=== PATIENT | male | born 1995 | race Two or more races ===

== ENCOUNTER 2023-08-10 17:34 | Emergency (ER) | payer OTHER, SELFPAY ==
--- NOTE | ~2023-08-10 | XR_ITS ---
EXAMINATION: XR CHEST CLINICAL INFORMATION: Reason for Exam cough COMPARISON: None TECHNIQUE: 2 views of the chest FINDINGS: Lines and tubes: None. Clear lungs. No pleural effusion. No pneumothorax. Ectatic or dilated ascending thoracic aorta greater than expected for age. Normal cardiac silhouette. XR/XR chest 2V IMPRESSION: Ectatic or dilated ascending thoracic aorta greater than expected for age. If clinical concern for aortic pathology, CT angiogram chest could be obtained.
[2023-08-10 17:42] VITALS: BP 127/60; PULSE 106; RESP 20; TEMP 36.4; O2SAT 95; BMI 38.7
--- NOTE | 2023-08-10 17:43 | ED.GENADULT ---
HPI - General Adult General Chief complaint: Upper Respiratory Symptoms Stated complaint: coughing/smoking a lot Time Seen by Provider: 08/10/23 19:23 Source: patient Mode of arrival: ambulatory Limitations: no limitations History of Present Illness ED Provider: Lynne Ricardo PA-C HPI narrative: Patient is a 28 year old assigned male at with a history of asthma presenting to the emergency department today with a cough. Patient states that over the last few days he has had increased coughing and continues to use his inhaler with no relief. Patient denies any dizziness, lightheadedness, abdominal pain, nausea, vomiting, fever, chills, blurry vision, double vision, loss of vision, chest pain, difficulty breathing, shortness of breath, back pain, night sweats, pain with urination, increased urinary frequency, increased urinary urgency, blood in his urine or stool, syncope or a near syncopal episode, recent trauma or falls, bowel incontinence, bladder incontinence, bowel retention, bladder retention, or any other complaints at this time. Onset (ago): day(s) Relieving factors: none Exacerbating factors: none Associated symptoms: cough Treatments prior to arrival: other (inhaler) Related Data Previous Rx's ?Medication ?Instructions ?Recorded benzonatate 100 mg capsule 100 mg PO BID PRN cough 7 days #14 08/10/23 caps doxycycline hyclate 100 mg tablet 100 mg PO BID 7 days #14 tabs 08/10/23 prednisone 20 mg tablet 20 mg PO DAILY 7 days #7 tabs 08/10/23 Allergies Allergy/AdvReac Type Severity Reaction Status Date / Time egg [EGGS] AdvReac Unknown NAUSEA AND Verified 08/10/23 17:45 VOMITING Review of Systems Constitutional: Constitutional: Reports no additional constitutional complaints, Denies chills, Denies fever(s) and Denies night sweats Eyes: Eyes: Reports no additional eye complaints, Denies blurry vision, Denies change in vision, Denies diplopia, Denies eye discharge, Denies loss of vision and Denies eye pain ENT: Denies dizziness Cardiovascular: Cardiovascular: Reports no additional cardiovascular complaints, Denies chest pain, Denies lightheadedness, Denies Loss of Consciousness and Denies dyspnea Respiratory: Respiratory: Reports no additional respiratory complaints, Reports cough and Denies dyspnea Gastrointestinal: Gastrointestinal: Reports no additional gastrointestinal complaints, Denies abdominal pain, Denies melena, Denies hematochezia, Denies change in bowel habits and Denies change in stool character Genitourinary: Genitourinary: Reports no additional male genitourinary complaints, Denies hematuria, Denies oliguria, Denies difficulty urinating, Denies dysuria, Denies urinary frequency, Denies urinary hesitancy, Denies urinary incontinence and Denies urinary urgency Musculoskeletal: Musculoskeletal: Reports no additional musculoskeletal complaints, Denies numbness and Denies tingling Neurologic: Denies dizziness, Denies loss of vision, Denies numbness and Denies tingling Psychiatric: Psychiatric: Reports no additional psychiatric complaints Endocrine: Endocrine: Reports no additional endocrine complaints Hematologic/Lymphatic: Hematologic/Lymphatic: Reports no additional hematologic/lymphatic complaints Allergic/Immunologic: Allergic/Immunologic: Reports no additional allergic/immunologic complaints PMFSH Past Medical History Attestation statement: The following information was validated with the patient. Source: old records reviewed and nursing notes reviewed Social History Social History Advance Directives: No Advance Directives Information Provided: No Do you have a plan to hurt others: No Plan Physical Exam ED Vital Signs: Vital Signs - 24 hr 08/10/23 17:42 08/10/23 19:01 08/10/23 19:13 Temperature 97.5 F Pulse Rate 106 H 119 H 110 H Respiratory Rate 20 24 H 22 H Blood Pressure 127/60 145/84 H Pulse Oximetry 95 95 Oxygen Delivery Method Room Air Room Air 08/10/23 19:42 Temperature 98 F Pulse Rate 110 H Respiratory Rate 22 H Blood Pressure 135/65 Pulse Oximetry 95 Oxygen Delivery Method Room Air BMI result Body Mass Index 38.7 Const General: cooperative, no acute distress, alert and awake Nutritional Appearance: well nourished Orientation/consciousness: patient oriented x3 Limitations: no limitations [facility] Head: Yes normal to inspection and Yes atraumatic Ears: hearing grossly normal bilaterally and external ears normal General nose exam: Normal external nose present, no nasal discharge noted and no epistaxis Face and sinus: Yes normal facial exam, No abrasion and No laceration Mouth: Normal oral and palatal mucosa present, no drooling and no muffled voice Eyes General: appearance normal, both eyes and all related structures Periorbital: periorbital findings normal Eyelids: Yes eyelids normal Conjunctivae: conjunctivae normal Pupils: Equal, round and reactive pupils present EOM: EOMs intact bilaterally Neck Neck: Yes normal visual inspection, Yes full ROM and Yes no lymphadenopathy Chest Chest palpation & inspection: normal inspection of the chest Resp Effort & Inspection: normal respiratory effort and able to speak in complete sentences Auscultation: wheezes throughout GI Inspection: Yes normal to inspection Neuro General: patient oriented x3 and moves all extremities Cranial nerves: Yes Equal, round and reactive pupils present Cognition (Neuro): normal cognition Motor exam (neuro): 5/5 motor strength present throughout Sensory Exam: Normal double simultaneous stimulation for sensation Coordination: [id number] test normal Extrem General: Yes normal to inspection, Yes full ROM and Yes capillary refill normal Psych Appearance: grossly normal Mental Status: mental status grossly normal Affect: normal affect Attitude: cooperative Thought process: Normal thought process present Thought content: Normal thought content present Insight: Good insight present (Psych) Course Course Course Narrative: RME performed by Lynne Ricardo PA-C. Patient is a 28 year old assigned male at presenting to the emergency department with a cough. Patient states he has been coughing for a few days and it is not getting better. Worse with laying down. Detailed physical exam and review of systems are deferred to the manager solution. Imaging and swabs ordered. Patient placed back in the waiting room pending room availability and results. Medications Administered Discontinued Medications Generic Name Dose Route Start Last Admin Trade Name Freq PRN Reason Stop Dose Admin Albuterol Sulfate 2.5 mg/ 0 mg 08/10/23 19:08 08/10/23 19:10 Albuterol/Ipratropium 3 ml INHALE 08/10/23 19:09 2.5 dose ONCE ONE Administration Methylprednisolone Sodium Succinate 60 mg 08/10/23 19:01 08/10/23 19:04 Methylprednisolone Sod Succ 125 Mg/2 Ml Vial IM 08/10/23 19:02 60 mg ONCE ONE Administration Medical Decision Making Medical Decision Making MDM Narrative: Patient is a 28 year old assigned male at with a history of asthma presenting to the emergency department today with a cough. Patient's physical exam showed wheezing throughout but was otherwise unremarkable. Patient's COVID-19, influenza, and RSV tests were negative. Patient's chest x-ray showed no acute process. Patient's chest x-ray did show an incidental finding of an ectatic or dilated ascending aorta greater than expected for age. I explained my physical exam findings as well as all test results to the patient. I answered all questions asked by the patient. Patient received IM solu-medrol and a breathing treatment which he stated helped his symptoms significantly. I stressed the importance of the patient taking his medication as prescribed. 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 I stressed the importance of the patient returning to the emergency department immediately if his symptoms were to worsen or if he were to develop any dizziness, shortness of breath, difficulty breathing, chest pain, blurry vision, loss of vision, nausea, vomiting, abdominal pain, fever, chills, back pain, or any other complaints. Patient verbalized agreement and understanding with this treatment plan and discharge. Differential Diagnosis Differential Diagnoses: The differential diagnosis associated with the presentation includes Cough Asthma exacerbation Admission/Observation Consideration of admission/observation: Escalation of care including admission/observation considered Patient would have been admitted to the hospital had his work up had any findings where hospital admission was appropriate and his clinical presentation warranted hospital admission. Lab Data [facility] Lab Attestation statement: I reviewed the patient's lab results. My interpretation of these results are in the [facility] Rationale portion of this note. Labs: Lab Results 08/10/23 Range/Units 17:52 Influenza Type A (PCR) NEGATIVE (Negative) Influenza Type B (PCR) NEGATIVE (Negative) RSV RNA Qual (PCR) NEGATIVE (Negative) SARS-CoV-2 RNA (RT-PCR) NEGATIVE (Negative) Independent Interpretation I performed an independent interpretation of an: Plain X-Ray Interpretation: My interpretation is in agreement with the radiologist's impression of this imaging study. EXAMINATION: XR CHEST CLINICAL INFORMATION: Reason for Exam cough COMPARISON: None TECHNIQUE: 2 views of the chest FINDINGS: Lines and tubes: None. Clear lungs. No pleural effusion. No pneumothorax. Ectatic or dilated ascending thoracic aorta greater than expected for age. Normal cardiac silhouette. XR/XR chest 2V IMPRESSION: Ectatic or dilated ascending thoracic aorta greater than expected for age. If clinical concern for aortic pathology, CT angiogram chest could be obtained. Dictated By: Bisi Rankin MD Signed By: Electronically signed by Bisi Ranikn MD 08/10/231929 Radiology Impression Discussion of test interpretation with radiology: I have reviewed the radiologist's reading. Prescription Management I considered prescription management with: Antibiotic (patient prescribed an antibiotic for bronchitis) Critical Care Time Critical Care Time Critical Care Time: Yes Total Critical Care Time: 35 Attestation: I spent 35 minutes of Critical Care Time with this patient. This does not include time spent on separately reported billable procedures. Discharge Plan Discharge Clinical Impression: Bronchitis, Asthma exacerbation Patient Disposition: Home, Self-Care Instructions: Asthma (DC), Acute Bronchitis (ED) Additional Instructions: Follow up with your primary care provider. Return to the emergency department immediately if your symptoms worsen or if you develop any dizziness, shortness of breath, difficulty breathing, chest pain, blurry vision, loss of vision, nausea, vomiting, abdominal pain, fever, chills, back pain, or any other complaints. Prescriptions: New benzonatate 100 mg capsule 100 mg PO BID PRN (Reason: cough) 7 Days Qty: 14 0RF prednisone 20 mg tablet 20 mg PO DAILY 7 Days Qty: 7 0RF doxycycline hyclate 100 mg tablet 100 mg PO BID 7 Days Qty: 14 0RF Referrals: [facility] [place] Family Medicine [Provider Group] (Call to establish and follow up with a primary care provider. If you already have a primary care provider, please follow up with them.) [facility] [place] Primary [facility] [Provider Group] [facility] [place] [facility] [Provider Group] [facility] [place] Vascular Services [Provider Group] (Call to establish and follow up with a vascular specialist to discuss your chest x-ray findings. ) Stand Alone Forms: Work/School Release Interventions: ED Discharge Assessment Last Done: 08/10/23 19:42 Discharge Date/Time: 08/10/23 19:43 Print Language: [place]
[2023-08-10 18:32] LABS: Influenza A PCR NEGATIVE (Negative); Influenza B PCR NEGATIVE (Negative); Resp Syncy Virus RNA Qual PCR NEGATIVE (Negative); SARS COV2 PCR INHOUSE NEGATIVE (Negative)
[2023-08-10 19:01] VITALS: BP 145/84; PULSE 119; RESP 24; O2SAT 95
[2023-08-10] MEDS: methylPREDNISolone Sod Succ 125 MG/2 ML VIAL 60 MG IM (19:04)
[2023-08-10] MEDS: Albuterol Sulfate 2.5 MG, Albuterol/Iprat 2.5/0.5MG 3 ML 3 ML INHALE (19:10)
[2023-08-10 19:13] VITALS: PULSE 110; RESP 22; O2SAT 95
[2023-08-10 19:42] VITALS: BP 135/65; PULSE 110; RESP 22; TEMP 36.6; O2SAT 95
== END 2023-08-10 19:43 | disposition home or self-care (01) ==
PROVIDERS: Physician Assistant Medical; Emergency Provider Emergency Medicine
DX: J40 Bronchitis, not specified as acute or chronic (principal); J45.901 Unspecified asthma with (acute) exacerbation; R05.9 Cough, unspecified; Z03.818 Encounter for observation for suspected exposure to other biological agents ruled out
CPT/HCPCS: 0241U; 71046; 94640; 96372; 99283; 99284; J2919

== ENCOUNTER 2023-08-16 14:57 | Outpatient (AMB) | payer OTHER, SELFPAY ==
[2023-08-16 15:01] VITALS: BP 130/70; PULSE 113; BMI 38.9
--- NOTE | 2023-08-16 15:01 | A.OFFVIS_ITS ---
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 He was treated with steroids and antibiotics and her chest x-ray performed. The chest x-ray has shown some ectasia in the aorta and it was advised that he get a CT angiogram. He is denying any concerning chest pain. His symptoms are improving after steroids and antibiotics. He is known asthmatic and has been experiencing some shortness of breath due to asthma in the setting of marijuana use and vaping. [facility] Social History (Updated 08/16/23 @ 15:04 by Sulema Jones [facility]) Alcohol intake: never Patient Tobacco Use Status: Former Tobacco user Review of Systems Const Denies chills, Denies fatigue, Denies fever(s), Denies frequent falls, Denies weakness, Denies weight gain and Denies weight loss ENT Denies dizziness Card Denies chest pain, Denies leg edema, Denies lightheadedness, Denies palpitations, Denies dyspnea, Denies dyspnea on exertion and Denies orthopnea Resp Denies cough, Denies dyspnea and Denies dyspnea on exertion GI Denies bloating and Denies change in bowel habits Musc Denies muscle weakness, Denies numbness and Denies tingling Neuro Denies dizziness, Denies frequent falls, Denies numbness, Denies tingling and Denies weakness Endo Denies fatigue and Denies palpitations Physical Exam Vital Signs: Last Vital Signs Pulse 113 H 08/16/23 15:01 BP 130/70 08/16/23 15:01 BMI result Body Mass Index 38.9 GENERAL APPEARANCE: in no acute distress, pleasant. NECK: no carotid bruit, no jugular venous distention. SKIN: no suspicious lesions, warm and dry. HEART: no murmurs, regular rate and rhythm. LUNGS: clear to auscultation bilaterally. ABDOMEN: soft, nontender. EXTREMITIES: no edema. PERIPHERAL PULSES: equal. NEUROLOGIC: No gross deficits, AAO X 3 Office Procedures EKG Details: Sinus tachycardia 1 1 3 beats per minute, normal axis, inferior T-wave inversions, nonspecific lateral T-wave changes, QTC 430 milliseconds. [id number], Complete Assessment & Plan Assessment & Plan (1) Aortic dilatation: Code(s): I77.819 - Aortic ectasia, unspecified site Category: Medical Plan 28-year-old gentleman with background of asthma presenting for abnormal chest x- ray raising concern for aortic ectasia versus aneurysm. He is adopted and has been in foster care all his life and his family history is not known. I have advised him that he should stop smoking marijuana and vaping because they affect his asthma and he has been short of breath. We will arrange CT angiogram of his thoracic and abdominal aorta. Thank you for allowing me to participate in the care of your patient. Please feel free to contact me if you have any questions. Orders: Orders CT angio chest aorta Today I77.819 - Aortic ectasia, unspecified site CT angio abd aorta runoff Today I77.819 - Aortic ectasia, unspecified site Medications: New albuterol sulfate 90 mcg/actuation 1 inh inhalation QID PRN 8.5 grams 0RF shortness of breath or wheezing J45.909 - Unspecified asthma, uncomplicated Coding Level of Care Code New Pt Level 4 (49211) Diagnoses Aortic dilatation I77.819 CPT Codes EKG - CPT: 03772-[id number], Complete ([id number])
== END 2023-08-16 15:35 | disposition home or self-care (01) ==
PROVIDERS: Visit Provider Internal Medicine Cardiovascular Disease
DX: I77.819 Aortic ectasia, unspecified site (principal)
CPT/HCPCS: 93010; 99204

== ENCOUNTER → 2023-08-16 14:57 | Outpatient (BNVA) | payer OTHER, SELFPAY | PROVIDERS: Visit Provider Internal Medicine Cardiovascular Disease | DX: I77.810 Thoracic aortic ectasia (principal); Z79.52 Long term (current) use of systemic steroids | CPT/HCPCS: 93005; 99202 ==

== ENCOUNTER 2023-09-07 14:45 | Outpatient (REF) | payer OTHER, SELFPAY ==
--- NOTE | ~2023-09-07 | CT_ITS ---
EXAMINATION: CT ANGIOGRAM CHEST CLINICAL INFORMATION: Aortic ectasia COMPARISON: Chest radiograph dated 08/02/2023 TECHNIQUE: Multiple axial images were obtained through the chest after the administration of 70 mL of intravenous Omnipaque 350. Images were evaluated on independent dedicated 3-D workstation and 3-D images were reconstructed with concurrent radiologist supervision and subsequently interpreted. This CT examination was performed using dose optimization techniques as appropriate, variously including the following: *Automated exposure control *Adjustment of mA and/or kV according to patient size (this includes techniques or standardized protocols for targeted exams where dose is matched to indication/reason for exam; i.e. extremities or head) *Use of iterative reconstruction technique DLP: 177 mGy-cm FINDINGS: VASCULAR FINDINGS: Heart: Normal in size. No coronary artery calcifications. Aorta: The thoracic aorta is normal in caliber. There is no dissection or aneurysm. No penetrating atheromatous ulcer. There is a two-vessel aortic arch with common origin of the brachiocephalic and left common carotid arteries, a normal anatomic variant. The origins of the arch vessels are widely patent and the vessels are normal in caliber. At the cusps: 3.6 x 3.5 cm Sinotubular Junction: 3.2 x 2.6 cm Ascending Thoracic Aorta (largest diameter): 2.9 x 2.8 cm Aortic Arch: 2.3 x 2.1 cm Proximal descending Thoracic Aorta (at level of main PA): 2.2 x 2.1 cmm Distal descending Thoracic Aorta : 1.9 x 1.8 cm NONVASCULAR FINDINGS: Thyroid Gland: The visualized thyroid gland is normal. Lungs: No airspace consolidation. No suspicious nodules or masses. Airways: The trachea and central bronchi are normal. Pleura: No pleural effusion. No pneumothorax. Lymph Nodes: No supraclavicular, axillary, mediastinal or hilar lymphadenopathy is identified. Chest Wall: No chest wall mass. Upper Abdomen: Posterior outpouching of the gastric fundus may represent a gastric diverticulum. The visualized upper abdomen is otherwise unremarkable. Soft Tissues/Musculoskeletal: There is no acute fracture or destructive osseous lesion. CT/CT angio chest aorta IMPRESSION: 1. No evidence of thoracic aortic aneurysm or dissection. 2. Tricuspid aortic valve. 3. Posterior outpouching of the gastric fundus may represent a gastric diverticulum. Fleischner guidelines were followed.
[2023-09-07] MEDS: iohexoL 350 MG/ML 100 ML INFUS..BTL 70 ML IV (15:23)
== END 2023-09-07 14:46 | disposition home or self-care (01) ==
LOC: HO.CT 14:45
PROVIDERS: Visit Provider Internal Medicine Cardiovascular Disease
DX: I77.819 Aortic ectasia, unspecified site (principal)
CPT/HCPCS: 71275; Q9967